=== PATIENT | male | born 1990 | race Two or more races ===

== ENCOUNTER → 2022-06-10 | Outpatient (CLI) | payer OTHER ==
[2022-06-10 16:40] LABS: BASO % 0.3 % (0.0-1.0); EOS # 0.1 10^3/uL (0.0-0.5); EOS % 1.5 % (0.0-3.0); HEMATOCRIT 41.5 % (42.0-52.0); HEMOGLOBIN 14.4 g/dl (13.5-17.5); LYMPH # 2.2 10^3/uL (1.5-5.0); LYMPH % 29.4 % (24.0-44.0); MEAN CORPUSCULAR HEMOGLOBIN 29.4 pg (27.0-33.0); MEAN CORPUSCULAR HGB CONC 34.7 g/dl (32.0-36.5); MEAN CORPUSCULAR VOLUME 84.7 fl (80.0-96.0); MONO # 0.4 10^3/uL (0.0-0.8); MONO % 5.8 % (2.0-8.0); NEUTROPHILS # 4.7 10^3/uL (1.5-8.5); NEUTROPHILS % 62.5 % (36.0-66.0); PLATELET COUNT, AUTOMATED 225 10^3/uL (150-450); WHITE BLOOD COUNT 7.5 10^3/uL (4.0-10.0)
[2022-06-10 17:05] LABS: ALBUMIN 4.4 GM/DL (3.2-5.2); ALT/SGPT 49 U/L (12-78); BILIRUBIN,TOTAL 0.5 MG/DL (0.2-1.0); BLOOD UREA NITROGEN 19 MG/DL (7-18); CALCIUM LEVEL 9.3 MG/DL (8.5-10.1); CARBON DIOXIDE LEVEL 27 MEQ/L (21-32); CHLORIDE LEVEL 105 MEQ/L (98-107); ERYTHROCYTE SEDIMENTATION RATE 5 mm/hr (0-15); GLOMERULAR FILTRATION RATE > 60.0 (>60); GLUCOSE, FASTING 91 MG/DL (70-100); POTASSIUM SERUM 3.8 MEQ/L (3.5-5.1); RHEUMATOID FACTOR QUANT < 10.0 IU/ML (<15.0); SODIUM LEVEL 138 MEQ/L (136-145); TOTAL PROTEIN 7.6 GM/DL (6.4-8.2)
[2022-06-10 17:34] LABS: HEMOGLOBIN A1c 5.4 %
[2022-06-11 09:28] LABS: ALBUMIN 4.86 GM/DL (3.29-5.55); ALPHA-1-GLOBULIN % 2.8 % (2.9-4.9); ALPHA-2-GLOBULINS % 8.1 % (7.1-11.8); BETA-1-GLOBULINS % 5.5 % (4.7-7.2); BETA-2-GLOBULINS % 4.3 % (3.2-6.5); GAMMA GLOBULIN % 15.3 % (11.1-18.8)
[2022-06-11 09:29] LABS: ALPHA-1-GLOBULINS 0.21 GM/DL (0.17-0.41); ALPHA-2-GLOBULINS 0.62 GM/DL (0.42-0.99); BETA-1-GLOBULINS 0.42 GM/DL (0.28-0.60); BETA-2-GLOBULINS 0.33 GM/DL (0.19-0.55); GAMMA GLOBULINS 1.16 GM/DL (0.65-1.58)
[2022-06-14 14:51] LABS: FOLATE 12.6 NG/ML (>3.0)
[2022-06-14 14:52] LABS: VITAMIN B12 LEVEL 581 PG/ML (232-1245)
== END ==
LOC: M WUC 13:25
PROVIDERS: ATTEND Psychiatry & Neurology Neurology
DX: G62.9 Polyneuropathy, unspecified (principal)